=== PATIENT | male | born 1980 | race Caucasian/White ===

== ENCOUNTER 2023-10-16 20:50 | Emergency (ER) | payer BC, OTHER ==
[~2023-10-16] VITALS: Ht 172.7 cm; Wt 113.9 kg
[2023-10-16] MEDS ORDERED: IBUPROFEN 600 MG TABLET ONE (22:33)
[2023-10-16] MEDS: IBUPROFEN 600 MG TABLET PO ONE (22:39)
[2023-10-16 23:26] VITALS: BP 124/78; TEMP 98.6; O2SAT 99
== END 2023-10-16 23:26 | disposition home or self-care (01) ==
LOC: ER 20:52
DX: S82.891A Other fracture of right lower leg, initial encounter for closed fracture (principal); Z98.890 Other specified postprocedural states; V89.2XXA Person injured in unspecified motor-vehicle accident, traffic, initial encounter; Y93.89 Activity, other specified; Y92.89 Other specified places as the place of occurrence of the external cause; Y99.8 Other external cause status
CPT/HCPCS: 73610; 73630; A4606; A4663